=== PATIENT | male | born 1995 | race Caucasian/White ===

== ENCOUNTER 2019-01-20 11:41 | Day surgery (SDC) | payer OTHER, BC ==
[2019-01-20] MEDS ORDERED: FENTAnyl 50 MCG/ML VIAL IV (13:30)
[2019-01-20] MEDS ORDERED: ONDANSETRON 4 MG INJ IV (13:30)
[2019-01-20] MEDS ORDERED: PROPOFOL 20 ML ×2 (14:12→14:44)
[2019-01-20] MEDS ORDERED: FENTAnyl 50 MCG/ML VIAL (14:13)
== END 2019-01-20 15:05 | disposition home or self-care (01) ==
LOC: GIL 11:41
DX: K92.1 Melena (principal); K64.8 Other hemorrhoids
CPT/HCPCS: 45378